=== PATIENT | male | born 1985 | race African-American/Black ===

== ENCOUNTER 2019-09-21 15:12 | Inpatient (IN) | payer SELFPAY ==
[~2019-09-21] VITALS: Ht 177.8 cm; Wt 71.9 kg
[2019-09-21] MEDS ORDERED: NALOXONE HCL 1 MG/ML 2 ML SYG IVP ONE (15:30)
[2019-09-21 16:36] LABS: BASOPHILS % (AUTO) 0.6 % (0.0-2.0); EOSINOPHILS % (AUTO) 0.1 % (1.0-6.0); HEMATOCRIT 40.8 % (41-53); HEMOGLOBIN 13.4 g/dL (13.5-17.5); LYMPHOCYTES # (AUTO) 1.3 K/uL (1.0-4.8); LYMPHOCYTES % (AUTO) 15.2 % (22.0-44.0); MEAN CORPUSCULAR HEMOGLOBIN 31.2 pg (26.0-34.0); MEAN CORPUSCULAR VOLUME 94 fL (80-100); MONOCYTES # (AUTO) 0.9 K/uL (0.1-1.0); MONOCYTES % (AUTO) 11.1 % (2.0-9.0); NEUTROPHILS # (AUTO) 6.1 K/uL (1.8-7.7); PLATELET COUNT (AUTO) 223 K/uL (150-450); RED BLOOD CELL COUNT(AUTO) 4.32 MIL/uL (4.50-5.90); RED CELL DISTRIBUTION WIDTH 13.3 % (11.5-14.5)
[2019-09-21 16:50] LABS: ANION GAP 21 mmol/L (8-16); CALCIUM, TOTAL 7.8 mg/dL (8.8-10.5); CARBON DIOXIDE 18 mmol/L (22-29); CHLORIDE 105 mmol/L (98-107); CREATININE 1.79 mg/dL (0.60-1.30); GLOMERULAR FILTR. RATE CALC 33 mL/min (>60); GLUCOSE,RANDOM 125 mg/dL (70-110); POTASSIUM 3.5 mmol/L (3.5-5.1); SODIUM SERUM 144 mmol/L (136-145); UREA NITROGEN, BLOOD 23 mg/dL (7-18)
[2019-09-21] MEDS ORDERED: PIPERACILLIN/TAZO 3.375 GM/D5W 50 ML IV ONE (17:00)
[2019-09-21] MEDS ORDERED: VANCOMYCIN HCL 1 GM/D5% WATER 200 ML IV ONE (17:00)
[2019-09-21] MEDS ORDERED: SODIUM CHLORIDE 0.9% 1,000 ML IV ONE (17:00)
[2019-09-21 17:14] LABS: ACETAMINOPHEN < 2 mcg/mL (10-30); ALBUMIN 3.6 g/dL (3.4-5.0); ALKALINE PHOSPHATASE 90 U/L (46-116); BILIRUBIN,TOTAL 0.4 mg/dL (0.1-1.0); THYROID STIMULATING HORMONE 1.57 uIU/mL (0.36-3.74); TOTAL PROTEIN, SERUM 6.6 g/dL (6.4-8.2)
[2019-09-21 17:21] LABS: ALANINE AMINOTRANSFERASE 3231 U/L (12-78); ASPARTATE AMINOTRANSFERASE 3347 U/L (15-37)
[2019-09-21 17:30] LABS: GLUCOSE,POINT OF CARE 147 MG/DL (70-110)
[2019-09-21] MEDS ORDERED: ACETAMINOPHEN 325 MG TABLET PO PRN (17:30)
[2019-09-21] MEDS ORDERED: ONDANSETRON HCL 4 MG/2 ML VIAL IVP PRN ×2 (17:30→21:45)
[2019-09-21] MEDS ORDERED: 0.9% SODIUM CHLORIDE 10 ML SYRINGE IVP PRN (17:30)
[2019-09-21 17:39] LABS: SALICYLATE < 2.8 mg/dL (2.8-20.0)
[2019-09-21 18:29] LABS: LACTIC ACID 7.5 mmol/L (0.4-2.0)
[2019-09-21] MEDS ORDERED: SODIUM CHLORIDE 0.9% 2,400 ML IV ONE (18:45)
[2019-09-21 21:40] VITALS: BP 110/75
[2019-09-21] MEDS ORDERED: BISACODYL 10 MG RECTAL RECTAL SUPPOSITORY PR PRN (21:45)
[2019-09-21] MEDS ORDERED: ZOLPIDEM TARTRATE 5 MG TABLET PO PRN (21:45)
[2019-09-21] MEDS ORDERED: MAGNESIUM HYDROXIDE SUSPENSION 30 ML UDCUP PO PRN (21:45)
[2019-09-21] MEDS: SODIUM CHLORIDE 0.45% 1,000 ML IV SCH (22:49)
[2019-09-21 23:44] VITALS: BP 112/64
[2019-09-22] MEDS: PIPERACILLIN/TAZO 3.375 GM/D5W 50 ML IV SCH ×5 (00:45→23:02)
[2019-09-22 05:00] VITALS: BP 112/51
[2019-09-22] MEDS: HEPARIN SODIUM,PORCINE 5,000 UNITS/ML VIAL SQ SCH ×4 (08:00→23:01)
[2019-09-22 08:16] VITALS: BP 115/70
[2019-09-22 09:01] LABS: HEMATOCRIT 38.7 % (41-53); HEMOGLOBIN 12.9 g/dL (13.5-17.5); MEAN CORPUSCULAR HEMOGLOBIN 31.1 pg (26.0-34.0); MEAN CORPUSCULAR HGB CONC 33.4 G/dL (31.0-37.0); MEAN CORPUSCULAR VOLUME 93 fL (80-100); PLATELET COUNT (AUTO) 172 K/uL (150-450); RED BLOOD CELL COUNT(AUTO) 4.15 MIL/uL (4.50-5.90); RED CELL DISTRIBUTION WIDTH 13.2 % (11.5-14.5)
[2019-09-22 09:20] LABS: ALBUMIN 3.4 g/dL (3.4-5.0); ALKALINE PHOSPHATASE 81 U/L (46-116); ANION GAP 7 mmol/L (8-16); BILIRUBIN,TOTAL 0.8 mg/dL (0.1-1.0); CALCIUM, TOTAL 7.8 mg/dL (8.8-10.5); CARBON DIOXIDE 28 mmol/L (22-29); CHLORIDE 103 mmol/L (98-107); CREATININE 1.27 mg/dL (0.60-1.30); GLOMERULAR FILTR. RATE CALC > 60 mL/min (>60); GLUCOSE,RANDOM 124 mg/dL (70-110); POTASSIUM 4.1 mmol/L (3.5-5.1); SODIUM SERUM 138 mmol/L (136-145); TOTAL PROTEIN, SERUM 6.3 g/dL (6.4-8.2); UREA NITROGEN, BLOOD 14 mg/dL (7-18)
[2019-09-22 09:24] LABS: BAND NEUTROPHILS % (MANUAL) 20 % (0-5); LYMPHOCYTES % (MANUAL) 20 % (22-44); SEGMENTED NEUTROPHILS % 60 % (40-70)
[2019-09-22 09:40] LABS: ALANINE AMINOTRANSFERASE 3702 U/L (12-78)
[2019-09-22 09:43] LABS: ASPARTATE AMINOTRANSFERASE 5392 U/L (15-37)
[2019-09-22 11:26] VITALS: BP 109/60
[2019-09-22 15:42] LABS: AMPHET/METH SCREEN,URINE POSITIVE (NEGATIVE); BARBITURATE SCREEN, URINE NEGATIVE (NEGATIVE); BENZODIAZEPINES SCREEN,URINE NEGATIVE (NEGATIVE); CANNABINOID SCREEN,URINE NEGATIVE (NEGATIVE); COCAINE SCREEN,URINE NEGATIVE (NEGATIVE); METHADONE SCREEN, URINE NEGATIVE (NEGATIVE); OPIATE SCREEN,URINE NEGATIVE (NEGATIVE)
[2019-09-22 15:45] LABS: PHENCYCLIDINE SCREEN,URINE NEGATIVE (NEGATIVE)
[2019-09-22 15:56] LABS: APPEARANCE,URINE CLOUDY (CLEAR); BILIRUBIN,URINE NEGATIVE (NEGATIVE); GLUCOSE, URINE (UA) NEGATIVE (NEGATIVE); KETONES,URINE NEGATIVE (NEGATIVE); LEUKOCYTE ESTERASE ,URINE NEGATIVE (NEGATIVE); NITRATE,URINE NEGATIVE (NEGATIVE); OCCULT BLOOD,URINE NEGATIVE (NEGATIVE); PROTEIN,URINE NEGATIVE (NEGATIVE); UROBILINOGEN,URINE 0.2 mg/dL (<=1.0)
[2019-09-22 16:04] LABS: RBC,URINE None Seen /HPF (0-2); WBC,URINE 0-2 /HPF (0-5)
[2019-09-22 16:05] LABS: BACTERIA,URINE None Seen /HPF (None Seen)
[2019-09-22 16:10] LABS: SQUAMOUS EPITHELIAL CELL,UR Rare /LPF (None Seen)
[2019-09-22 16:11] LABS: URIC ACID CRYSTALS,URINE Many /LPF (None Seen)
[2019-09-22 16:18] VITALS: BP 110/65
[2019-09-22] MEDS: SODIUM CHLORIDE 0.45% 1,000 ML IV SCH (16:52)
[2019-09-22 20:00] VITALS: BP 119/66
[2019-09-22] MEDS: ACETAMINOPHEN 325 MG TABLET PO PRN (23:21)
[2019-09-23] VITALS (7 sets, daily range): BP systolic 91–134; BP diastolic 68–79
[2019-09-23] MEDS: PIPERACILLIN/TAZO 3.375 GM/D5W 50 ML IV SCH ×3 (05:14→17:58)
[2019-09-23] MEDS: SODIUM CHLORIDE 0.45% 1,000 ML IV SCH (06:20)
[2019-09-23] MEDS: HEPARIN SODIUM,PORCINE 5,000 UNITS/ML VIAL SQ SCH ×3 (08:00→18:04)
[2019-09-23] MEDS: ACETAMINOPHEN 325 MG TABLET PO PRN ×2 (09:52→20:47)
[2019-09-24] MEDS: SODIUM CHLORIDE 0.45% 1,000 ML IV SCH ×2 (00:17→11:47)
[2019-09-24] MEDS: PIPERACILLIN/TAZO 3.375 GM/D5W 50 ML IV SCH ×5 (00:17→23:34)
[2019-09-24] MEDS: ACETAMINOPHEN 325 MG TABLET PO PRN ×3 (01:32→19:52)
[2019-09-24 04:14] VITALS: BP 123/78
[2019-09-24 07:33] VITALS: BP 110/70
[2019-09-24] MEDS: HEPARIN SODIUM,PORCINE 5,000 UNITS/ML VIAL SQ SCH ×4 (08:00→23:39)
[2019-09-24 11:42] VITALS: BP 117/71
[2019-09-24 15:40] VITALS: BP 121/71
[2019-09-24 16:09] VITALS: BP 133/104
[2019-09-24 16:46] LABS: BASOPHILS % (AUTO) 0.6 % (0.0-2.0); EOSINOPHILS % (AUTO) 6.1 % (1.0-6.0); HEMATOCRIT 42.8 % (41-53); HEMOGLOBIN 14.1 g/dL (13.5-17.5); LYMPHOCYTES % (AUTO) 9.2 % (22.0-44.0); MEAN CORPUSCULAR HEMOGLOBIN 30.5 pg (26.0-34.0); MEAN CORPUSCULAR VOLUME 92 fL (80-100); MONOCYTES # (AUTO) 0.3 K/uL (0.1-1.0); MONOCYTES % (AUTO) 2.4 % (2.0-9.0); NEUTROPHILS # (AUTO) 8.5 K/uL (1.8-7.7); NEUTROPHILS % (AUTO) 81.7 % (40.0-70.0); PLATELET COUNT (AUTO) 184 K/uL (150-450); RED BLOOD CELL COUNT(AUTO) 4.64 MIL/uL (4.50-5.90); RED CELL DISTRIBUTION WIDTH 12.7 % (11.5-14.5)
[2019-09-24 17:24] LABS: ALANINE AMINOTRANSFERASE 2476 U/L (12-78); ALBUMIN 3.1 g/dL (3.4-5.0); ALKALINE PHOSPHATASE 105 U/L (46-116); ANION GAP 2 mmol/L (8-16); ASPARTATE AMINOTRANSFERASE 610 U/L (15-37); BILIRUBIN,TOTAL 1.1 mg/dL (0.1-1.0); CALCIUM, TOTAL 8.7 mg/dL (8.8-10.5); CARBON DIOXIDE 31 mmol/L (22-29); CHLORIDE 104 mmol/L (98-107); CREATININE 1.01 mg/dL (0.60-1.30); GLOMERULAR FILTR. RATE CALC > 60 mL/min (>60); GLUCOSE,RANDOM 109 mg/dL (70-110); POTASSIUM 4.1 mmol/L (3.5-5.1); SODIUM SERUM 137 mmol/L (136-145); TOTAL PROTEIN, SERUM 6.6 g/dL (6.4-8.2); UREA NITROGEN, BLOOD 8 mg/dL (7-18)
[2019-09-24 19:32] VITALS: BP 124/72
[2019-09-25 00:06] VITALS: BP 126/87
[2019-09-25] MEDS: SODIUM CHLORIDE 0.45% 1,000 ML IV SCH (01:20)
[2019-09-25 04:27] VITALS: BP 127/73
[2019-09-25] MEDS: PIPERACILLIN/TAZO 3.375 GM/D5W 50 ML IV SCH (06:00)
== END 2019-09-25 07:15 | disposition left against medical advice (07) | DRG 917 ==
LOC: EDBD 15:14 → EMS 15:14 → 5S 19:00 → 5N 21:25 → 5S 09-23 22:00 → 6N 09-24 15:50
PROVIDERS: ADMIT Hospitalist; ATTEND Hospitalist
DX: T40.2X1A Poisoning by other opioids, accidental (unintentional), initial encounter (principal); J69.0 Pneumonitis due to inhalation of food and vomit; G92 Toxic encephalopathy; N17.9 Acute kidney failure, unspecified; B17.9 Acute viral hepatitis, unspecified; R65.10 Systemic inflammatory response syndrome (SIRS) of non-infectious origin without acute organ dysfunction; F11.129 Opioid abuse with intoxication, unspecified; E86.0 Dehydration; T38.3X1A Poisoning by insulin and oral hypoglycemic [antidiabetic] drugs, accidental (unintentional), initial encounter; Y92.89 Other specified places as the place of occurrence of the external cause; Z03.818 Encounter for observation for suspected exposure to other biological agents ruled out
CPT/HCPCS: 80074; 82948; 83605; 84443; 87040; 87635; 93005; 99291; G0378; G0480; G0481; J1644; J2310; J2543; J3370; J7030

== ENCOUNTER 2019-10-02 13:34 | Emergency (ER) | payer MEDICAID ==
[~2019-10-02] VITALS: Ht 175.3 cm; Wt 77.3 kg
[~2019-10-02 13:34] MED LIST: LEVE250T55 PO; TRAM50TA4 PO
[2019-10-02] MEDS ORDERED: ACETAMINOPHEN 500 MG TABLET PO ONE (14:15)
[2019-10-02] MEDS ORDERED: DOXYCYCLINE HYCLATE 100 MG CAPSULE PO ONE (14:15)
[2019-10-02] MEDS ORDERED: IBUPROFEN 600 MG TABLET PO ONE (15:30)
[2019-10-02 16:31] VITALS: BP 120/71
== END 2019-10-02 16:37 | disposition home or self-care (01) ==
LOC: EMS 13:35
DX: S91.301A Unspecified open wound, right foot, initial encounter (principal); F17.210 Nicotine dependence, cigarettes, uncomplicated; F12.90 Cannabis use, unspecified, uncomplicated; F15.90 Other stimulant use, unspecified, uncomplicated; Z79.899 Other long term (current) drug therapy; X58.XXXA Exposure to other specified factors, initial encounter; Y93.89 Activity, other specified; Y92.89 Other specified places as the place of occurrence of the external cause; Y99.8 Other external cause status
CPT/HCPCS: 99406